=== PATIENT | female | born 1990 | race Caucasian/White ===

== ENCOUNTER 2017-08-08 21:00 | Emergency (ER) | payer BC ==
[~2017-08-08] VITALS: Ht 147.3 cm; Wt 86.6 kg
[2017-08-08 21:12] VITALS: Ht 147.3 cm; Wt 86.6 kg
[2017-08-08 22:51] VITALS: BP 136/88
== END 2017-08-08 23:16 | disposition home or self-care (01) ==
LOC: ED 21:00
DX: K08.89 Other specified disorders of teeth and supporting structures (principal); I10 Essential (primary) hypertension